=== PATIENT | female | born 1980 | race Caucasian/White ===

== ENCOUNTER 2025-06-11 21:30 | Emergency (ER) | payer OTHER ==
[~2025-06-11] VITALS: Ht 162.6 cm; Wt 67.1 kg
[2025-06-11 22:18] VITALS: BP 128/90
[2025-06-11 22:30] VITALS: O2SAT 95
[2025-06-11] MEDS ORDERED: ALBUTEROL SULFATE 2.5 MG/3 ML NEBU ONE (22:41)
[2025-06-11] MEDS ORDERED: IPRATROPIUM BROMIDE 0.5 MG/2.5 ML NEBU ONE (22:41)
[2025-06-11 22:45] VITALS: O2SAT 98
[2025-06-11] MEDS: ALBUTEROL SULFATE 2.5 MG/3 ML NEBU NEB ONE (22:46)
[2025-06-11] MEDS: IPRATROPIUM BROMIDE 0.5 MG/2.5 ML NEBU NEB ONE (22:46)
[2025-06-11 23:07] VITALS: BP 124/88; TEMP 98; O2SAT 97
[2025-06-11] MEDS ORDERED: PRED20TA PO (23:09)
[2025-06-11] MEDS ORDERED: BECL10.6 INH (23:09)
[2025-06-11] MEDS ORDERED: ALBU18HF2 INH (23:09)
== END 2025-06-11 23:14 | disposition home or self-care (01) ==
LOC: ER 21:34
DX: J45.31 Mild persistent asthma with (acute) exacerbation (principal); Z79.51 Long term (current) use of inhaled steroids; Z79.52 Long term (current) use of systemic steroids; Z88.0 Allergy status to penicillin; Z88.7 Allergy status to serum and vaccine
CPT/HCPCS: 99283; 94640; J7512; A4606; A4663; J3590